=== PATIENT | female | born 1975 | race Caucasian/White ===

== ENCOUNTER 2019-11-17 13:25 | Inpatient (IN) | payer OTHER ==
[~2019-11-17] VITALS: Ht 180.3 cm; Wt 113.4 kg
--- NOTE | 2019-11-17 14:28 | NUR ---
PATIENT MEETS [facility]. CINA=[id number]. PATIENT IS WANTING TO FOLLOW UP WITH [facility] FOR RESIDENTIAL TREATMENT. ROSA MARIA ERNANDEZ B.A.REPRINT SORTER
[2019-11-17 14:30] VITALS: BP 145/78
[2019-11-17] MEDS ORDERED: REQUIP0.25 M1 PO (14:40)
--- NOTE | 2019-11-17 14:57 | NUR ---
[facility], admitted to , under the services of ANASTASIA Rojas DO with a diagnosis of COCCAINE ABUSE. Chief complaint is DENIES. Patient arrived via ambulatory from [place]. Monitor applied. Initial assessment completed. Vital signs taken and recorded. ANASTASIA ROJAS DO notified of admission to the unit. Orders received. See assessment for past medical history, medications and allergies. Patient and/or family oriented to unit. [facility] visitation policy reviewed. Clothing/patient valuable form completed. ANABELLE GAITAN
[2019-11-17 15:28] LABS: BASO # 0.1 10*3/uL (0.0-0.1); BASO % 0.9 % (0.0-1.0); EOS # 0.1 10*3/uL (0.0-0.4); EOS % 1.4 % (1.0-4.0); HEMATOCRIT 39.1 % (37.0-47.0); LYMPH # 2.2 10*3/uL (1.3-4.4); LYMPH % 23.9 % (27.0-41.0); MEAN CELL VOLUME 86.7 fl (81.0-99.0); MEAN CORPUSCULAR HGB 26.8 pg (27.0-31.0); MEAN CORPUSCULAR HGB CONC 30.9 g/dl (33.0-37.0); MEAN PLATELET VOLUME 11.7 fl (9.6-12.3); MONO # 0.7 10*3/uL (0.1-1.0); MONO % 7.2 % (3.0-9.0); NEUT # 6.2 10*3/uL (2.3-7.9); NEUT % 66.4 % (47.0-73.0); PLATELET COUNT AUTOMATED 250 10*3/uL (130-400); RED BLOOD COUNT 4.51 10*6/uL (4.10-5.10); RED CELL DISTRI WIDTH 15.2 % (0-14.5); WHITE BLOOD COUNT 9.3 10*3/uL (4.8-10.8)
[2019-11-17 15:40] LABS: BILIRUBIN NEGATIVE (NEGATIVE); BLOOD 3+ (NEGATIVE); CLARITY SL CLOUDY (CLEAR); COLOR YELLOW (YELLOW); GLUCOSE NEGATIVE (NEGATIVE); KETONE NEGATIVE (NEGATIVE); LEUKO ESTERASE 2+ (NEGATIVE); NITRITE NEGATIVE (NEGATIVE); PH 6.5 (5.0-9.0); UROBILINOGEN 0.2 E.U./dl (0.2-1.0)
[2019-11-17 15:42] LABS: ALBUMIN 3.6 gm/dl (3.1-4.5); ALKALINE PHOSPHATASE 87 U/L (45-117); BUN 15 mg/dl (7-24); CHLORIDE 111 mmol/L (98-107); CREATININE 0.87 mg/dL (0.55-1.02); POTASSIUM 4.1 mmol/L (3.5-5.1); SGOT/AST 10 IU/L (3-35); SGPT/ALT 18 U/L (12-78); SODIUM 140 mmol/L (136-145); TOTAL PROTEIN 7.1 gm/dL (6.4-8.2)
[2019-11-17 15:46] LABS: BACTERIA 1+; CALCIUM OXALATE CRYSTALS 2+; EPITHELIAL CELLS 21-30; URINE AMPHETAMINES < 1000 (1000ng/ml); URINE BARBITURATES < 200 (200ng/ml); URINE BENZODIAZEPINES < 200 (200ng/ml); URINE CANNABINOIDS (THC) > 50 (50ng/ml); URINE COCAINE > 300 (300ng/ml); URINE METHADONE < 300 (300ng/ml); URINE OPIATES < 300 (300ng/ml)
[2019-11-17 15:48] LABS: BETA-HCG, QUANT < 1.0 mIU/mL (1-3); ETHYL ALCOHOL < 3.0 mg/dl (<3)
[2019-11-17 15:48] LABS: URINE PHENCYCLIDINE < 25 (25ng/ml)
[2019-11-17 15:59] LABS: INTERNATIONAL NORM RATIO 0.9 (2.0-3.5)
[2019-11-17 20:00] VITALS: BP 119/73
[2019-11-18] VITALS: BP 120/77
[2019-11-18 08:00] VITALS: BP 106/68
--- NOTE | 2019-11-18 09:53 | NUR ---
PATIENT HAS BEEN ACCEPTED TO [facility] FOR RESIDENTIAL TREATMENT. PATIENT IS SCHEDULED FOR November AFTER DISCHARGE. ROSA MARIA ERNANDEZ B.A. IRRIGATOR SPRINKLING SYSTEM
[2019-11-18 12:00] VITALS: BP 115/70
[2019-11-18 16:00] VITALS: BP 125/75
--- NOTE | 2019-11-18 18:45 | NUR ---
REQUIP GIVEN FOR C/O RESTLESS LEGS. WILL MONITOR.
[2019-11-18 20:00] VITALS: BP 110/68
[2019-11-19] VITALS: BP 101/84
[2019-11-19 08:00] VITALS: BP 109/66
--- NOTE | 2019-11-19 10:28 | NUR ---
Medicated with requip per prn order for complaints of restless legs.
[2019-11-19 12:00] VITALS: BP 138/74
--- NOTE | 2019-11-19 14:00 | NUR ---
PATIENT REPORTS THAT SHE HAS FAMILY TO TAKE HER TO [facility] FOR SATURDAY. PATIENT AGREES AND UNDERSTANDS HER AFTERCARE PLAN. ROSA MARIA ERNANDEZ B.A. HIV COUNSELOR
[2019-11-19 16:00] VITALS: BP 115/72
--- NOTE | 2019-11-19 18:49 | NUR ---
Medicated with requip per prn order for complaints of restless legs.
[2019-11-19 20:00] VITALS: BP 110/70
--- NOTE | 2019-11-19 23:55 | NUR ---
PATIENT MEDICATED WITH VISTARIL, REQUIP AND TRAZODONE PER PRN ORDER FOR S/S OF WITHDRAWAL. SEE EMAR. REINFORCED USE OF CALL LIGHT.
[2019-11-20] VITALS: BP 115/71
--- NOTE | 2019-11-20 02:46 | NUR ---
24 HR chart check completed.
[2019-11-20 08:00] VITALS: BP 106/65
[2019-11-20] MEDS ORDERED: HYDROXYZINE PAM25 M1 PO (09:40)
--- NOTE | 2019-11-20 11:47 | NUR ---
Discharge instructions reviewed with patient/family. Patient receptive and verbalizes understanding. Follow-up care arranged. Written instructions given to patient/family. PEDRO CABRERA
== END 2019-11-20 11:47 | disposition home or self-care (01) | DRG 773 ==
LOC: 4E 13:25
PROVIDERS: Registered Nurse; ADMIT Internal Medicine
DX: F14.10 Cocaine abuse, uncomplicated (principal); F32.9 Major depressive disorder, single episode, unspecified; G25.81 Restless legs syndrome; F12.90 Cannabis use, unspecified, uncomplicated; E66.9 Obesity, unspecified; F11.10 Opioid abuse, uncomplicated; Z80.1 Family history of malignant neoplasm of trachea, bronchus and lung; Z68.34 Body mass index [BMI] 34.0-34.9, adult